=== PATIENT | female | born 1975 | race Caucasian/White ===

== ENCOUNTER → 2021-12-17 15:40 | Outpatient (BNVA) | payer BC, SELFPAY | PROVIDERS: Visit Provider Family Medicine | DX: M06.9 Rheumatoid arthritis, unspecified (principal); Z13.1 Encounter for screening for diabetes mellitus; Z13.220 Encounter for screening for lipoid disorders; Z13.6 Encounter for screening for cardiovascular disorders; N95.1 Menopausal and female climacteric states; N92.6 Irregular menstruation, unspecified; M72.2 Plantar fascial fibromatosis; N39.41 Urge incontinence; R15.9 Full incontinence of feces; R15.2 Fecal urgency; Z76.89 Persons encountering health services in other specified circumstances | CPT/HCPCS: 80053; 80061; 85025; 85651; 86038; 86140; 86200; 86431 ==

== ENCOUNTER → 2022-04-05 09:53 | Outpatient (BNVA) | payer BC, SELFPAY | PROVIDERS: PCP Family Medicine; Visit Provider Internal Medicine | DX: L40.9 Psoriasis, unspecified (principal); N95.1 Menopausal and female climacteric states | CPT/HCPCS: 72202; 73120 ==

== ENCOUNTER 2022-04-22 10:26 | Emergency (ER) | payer BC, SELFPAY ==
[2022-04-22 10:30] VITALS: BP 129/87; PULSE 79; RESP 18; TEMP 36.4; O2SAT 96
--- NOTE | 2022-04-22 11:24 | W.ED.ABDPA2 ---
HPI - Abdominal Pain General: Chief Complaint: Abdominal Pain Stated Complaint: Lower back and abd pain Time Seen by Provider: 04/22/22 11:02 History of Present Illness: Patient comes in with left lower back pain that started a couple days ago. 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 States it got significantly worse at night while she was sleeping. She describes it as sharp, constant, significantly worse with movement. States that it radiates into her left lower abdomen and left lateral thigh. Denies nausea, fever, vomiting, or diarrhea. Denies any blood in her urine. Associated Symptoms: Denies dysuria, fever(s), nausea and vomiting Review of Systems Const: Denies: fever(s) or body aches Eyes: Denies: change in vision or blurry vision ENMT: Denies: throat pain or odynophagia Card: Denies: chest pain or palpitations Resp: Denies: dyspnea or productive cough GI: Denies: abdominal pain, nausea or vomiting : Denies: flank pain or dysuria Musc: Reports: back pain; Denies: neck pain Skin/Breast: Denies: rash or pruritus Neuro: Denies: headache(s) or numbness in extremities Psych: Denies: anxiety or change in appetite Endo: Denies: polyuria or excessive sweating PFSH ED PFSH: Medical History Cervicalgia Neuropathy Rheumatoid arthritis Swelling Family History Father Diabetes Cancer Osteoarthritis Gout Grandmother Diabetes Grandmother No problems noted. Social History Smoking and tobacco status: never smoked Physical Exam Const: COMMON NORMALS: no acute distress, patient oriented x3, healthy appearing and alert HENMT: COMMON NORMALS: normocephalic and atraumatic HEAD & SCALP: normocephalic and atraumatic Eye: COMMON NORMALS: Equal, round and reactive pupils present and EOMs intact bilaterally PUPIL: Yes Equal, round and reactive pupils present Neck/C-Spine: COMMON NORMALS: full ROM and supple Resp: COMMON NORMALS: normal respiratory effort, No retractions and No use of accessory muscles Cardio: COMMON NORMALS: regular rate and regular rhythm RATE: regular rate RHYTHM: regular rhythm GI: COMMON NORMALS: Normal to inspection, nondistended, normoactive bowel sounds present, Soft to palpation and non-tender PALPATION: Yes Soft to palpation Back/Pelvis: OTHER: palpable muscle tightness and tenderness to palpation in the left lower back lateral to midline. Positive straight leg raise test. Extremity: COMMON NORMALS: normal to inspection and full ROM Neuro: COMMON NORMALS: patient oriented x3 SENSORIUM/ORIENTATION: Yes alert Psych: COMMON NORMALS: mental status grossly normal and cooperative Skin: COMMON NORMALS: no rashes or lesions noted and no wounds GENERAL SKIN EXAM: no rashes or lesions noted Course Vital Signs: Vital signs: Vital Signs Temperature 97.6 F 04/22/22 10:30 Pulse Rate 79 04/22/22 10:30 Respiratory Rate 18 04/22/22 10:30 Blood Pressure 129/87 04/22/22 10:30 Pulse Oximetry 96 04/22/22 10:30 MDM - Abdominal Pain Medical Decision Making Patient comes in with left lower back pain that started a couple days ago. 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 States it got significantly worse at night while she was sleeping. She describes it as sharp, constant, significantly worse with movement. States that it radiates into her left lower abdomen and left lateral thigh. Denies nausea, fever, vomiting, or diarrhea. Denies any blood in her urine. On physical exam she has palpable muscle tightness and tenderness to palpation in the left lower back lateral to midline. Positive straight leg raise test. States that this feels similar to when she injured her back previously. We will start her on a muscle relaxer, anti-inflammatories, steroids, encouraged heat, and discharge with precautions to return for worsening or changing symptoms. Discharge Plan Discharge Patient Disposition: Home Clinical Impression: Muscle spasm of back Condition: Stable Prescriptions: New cyclobenzaprine 5 mg tablet 5 mg PO TID PRN (Reason: muscle spasm) Qty: 10 0RF prednisone 20 mg tablet 60 mg PO DAILY 4 Days Qty: 12 0RF Discharge Orders: Discharge ED (Routine); Ordered 04/22/22 Ordered By: Hammad Cespedes Referrals: Aydee Claros MD [Primary Care Provider] - Patient Instructions: Sciatica (ED), Muscle Spasm (ED) Coding Level of Care Code ED [employer]
--- NOTE | 2022-04-22 11:25 | PC.PHAR ---
pt states she takes tums prn and ibuprofen 600mg q6h prn states took today at 06:00 am-couldnt enter medications because discharge orders were in
[2022-04-22] MEDS: cyclobenzaprine 10 mg Tablet 5 MG PO (11:37)
[2022-04-22] MEDS: predniSONE 20 mg Tablet 60 MG PO (11:38)
[2022-04-22 11:41] VITALS: BP 119/75; PULSE 81; RESP 16; O2SAT 98
== END 2022-04-22 11:42 | disposition home or self-care (01) ==
PROVIDERS: Emergency Provider Emergency Medicine; PCP Family Medicine
DX: M62.830 Muscle spasm of back (principal)
CPT/HCPCS: 81000; 99283; J7512

== ENCOUNTER → 2022-04-30 10:13 | Outpatient (BNVA) | payer BC, SELFPAY | PROVIDERS: PCP Family Medicine; Visit Provider Family Medicine | DX: N95.1 Menopausal and female climacteric states (principal); N39.41 Urge incontinence; R15.2 Fecal urgency; R15.9 Full incontinence of feces; G62.9 Polyneuropathy, unspecified; M54.2 Cervicalgia; R60.9 Edema, unspecified | CPT/HCPCS: 82550; 86160; 86162; 86200; 86235; 86255; 86376 ==

== ENCOUNTER → 2022-05-31 10:20 | Outpatient (BNVA) | payer BC, SELFPAY | PROVIDERS: PCP Family Medicine; Visit Provider Internal Medicine | DX: M06.9 Rheumatoid arthritis, unspecified (principal); M47.812 Spondylosis without myelopathy or radiculopathy, cervical region | CPT/HCPCS: 72040 ==

== ENCOUNTER → 2022-11-04 09:20 | Outpatient (BNVA) | payer BC, SELFPAY | PROVIDERS: PCP Family Medicine; Visit Provider Internal Medicine | DX: M54.2 Cervicalgia | CPT/HCPCS: 80053; 82550; 84100; 84425; 85025; 85651; 86140 ==

== ENCOUNTER → 2022-12-09 10:20 | Outpatient (BNVA) | payer BC, SELFPAY | PROVIDERS: PCP Family Medicine; Referring Provider Internal Medicine; Visit Provider Psychiatry & Neurology Neurology | DX: R42 Dizziness and giddiness (principal); M54.2 Cervicalgia; G62.9 Polyneuropathy, unspecified; R60.9 Edema, unspecified; R51.9 Headache, unspecified; G89.29 Other chronic pain | CPT/HCPCS: 36415; 82607; 82746; 83921 ==

== ENCOUNTER 2022-12-27 07:54 | Outpatient (CLI) | payer BC, SELFPAY ==
--- NOTE | 2022-12-27 08:45 | MR_ITS ---
WS: [id number] MRI BRAIN WITHOUT CONTRAST HISTORY: R42 - Dizziness and giddiness COMPARISON: None available. TECHNIQUE: Diffusion imaging, multiplanar T1, T2 and FLAIR imaging obtained. No evidence for acute infarct or hemorrhage. Couch-white matter differentiation is normal. No remote or acute infarcts are volume loss. Normal hippocampal formations. Very minimal small vessel ischemic disease in the subcortical white matter. Ventricles and extra-axial spaces are normal. No inferior displacement of cerebellar tonsils. The sella turcica and pituitary gland are unremarkabl e. Dural venous sinuses and [place] demonstrate no abnormality on this unenhanced studies. Paranasal sinuses: Clear. Mastoid air cells: Normal. Calvarium and scalp: Intact. IMPRESSION: 1. Very minimal small vessel ischemic disease. 2. No prior infarcts or hemorrhage. 3. Normal hippocampal formations.
[2022-12-27 09:37] LABS: Basophils # 0.1 10^3/uL (0.0-0.1); Basophils % 0.6 %; Eosinophils # 0.1 10^3/uL (0.0-0.8); Eosinophils % 1.7 %; Hematocrit 41.4 % (36-47); Lymphocytes # 2.3 10^3/uL (0.8-4.8); Lymphocytes % 27.2 %; Mean Corpuscular HGB Conc 32.1 g/dL (30-55); Mean Corpuscular Hemoglobin 33.5 pg (27-33); Mean Corpuscular Volume 104.3 fl (85-98); Mean Platelet Volume 9.7 fL (7.4-10.4); Monocytes # 0.6 10^3/uL (0.2-0.9); Monocytes % 7.1 %; Neutrophils # 5.24 10^3/uL (1.8-7.7); Neutrophils % 63.2 %; Nucleated Red Blood Cells % 0 %; Platelet Count 295 10^3/cmm (157-399); Red Blood Count 3.97 10^6/uL (3.85-5.65); Red Cell Distribution Width 12.7 % (12.1-15.1)
[2022-12-27 09:42] LABS: Erythrocyte Sedimentation Rate < 1 mm/hr (0-15)
[2022-12-27 09:53] LABS: Alanine Aminotransferase 17 U/L (0-33); Albumin Level 4.1 g/dL (3.5-5.2); Alkaline Phosphatase 62 U/L (35-105); Anion Gap 12.6 (5-19); Aspartate Amino Transferase 17 U/L (0-32); Blood Urea Nitrogen 12 mg/dL (6-20); Calcium 9.7 mg/dL (8.5-10.5); Carbon Dioxide 28 mmol/L (22-29); Chloride 105 mmol/L (98-107); Complement C3 130 mg/dL (90-180); Globulin 2.2 g/dL (1.3-4.6); Glomerular Filtration Rate 59.2 mL/min (90-130); Glucose 119 mg/dL (65-115); Osmolality Calculated 293 mOsm/kg (285-295); Potassium 4.6 mmol/L (3.5-5.1); Sodium 141 mmol/L (136-145); Total Bilirubin 0.2 mg/dL (0.15-1.2); Total Protein 6.3 g/dL (6.6-8.7)
[2022-12-30 12:46] LABS: Immunoglobulin A 152 mg/dL (47-310)
[2022-12-30 15:45] LABS: Gliadin Ab.IgA 2.9 U/mL; Gliadin Ab.IgG <1.0 U/mL; Tissue Transglutaminase IgA Ab <1.0 U/mL; Tissue transglutaminase Ab.IgG <1.0 U/mL
[2023-01-01 19:15] LABS: 14.3.3 ETA Protein <0.2 ng/mL (<0.2)
== END 2022-12-27 07:55 | disposition home or self-care (01) ==
PROVIDERS: PCP Family Medicine; Referring Provider Internal Medicine; Visit Provider Psychiatry & Neurology Neurology
DX: G62.9 Polyneuropathy, unspecified (principal); M54.2 Cervicalgia; R42 Dizziness and giddiness; R60.9 Edema, unspecified; M72.2 Plantar fascial fibromatosis; N95.1 Menopausal and female climacteric states; R79.89 Other specified abnormal findings of blood chemistry
CPT/HCPCS: 70551; 80053; 81000; 82784; 83516; 83520; 85025; 85651; 86140; 86160

== ENCOUNTER 2023-01-08 10:14 | Outpatient (CLI) | payer BC, SELFPAY ==
--- NOTE | 2023-01-08 12:45 | MR_ITS ---
WS: [id number] MRA ANGIOGRAPHY [place] HISTORY: Feeling of pressure in head. COMPARISON: None available. TECHNIQUE: 3-D MR angiography is performed of the [place]. All images are reviewed including source images. Small caliber distal vertebral arteries but they are patent. LEFT vertebral artery is slightly domina nt. Small caliber basilar artery but it is also patent. No aneurysm. Small caliber posterior cerebral arteries but they are patent. Patent posterior communicating arteries. Intracranial portion of the internal carotid arteries are normal course and caliber. No significant a therosclerosis, stenosis or aneurysm identified. Middle and anterior cerebral arteries are both paten t with no significant disease. Anterior communicating artery is also normal. IMPRESSION: 1. No cerebral artery aneurysms or occlusions. 2. Small caliber distal vertebral arteries and basilar artery. No occlusions.
== END 2023-01-08 10:15 | disposition home or self-care (01) ==
PROVIDERS: PCP Family Medicine; Visit Provider Psychiatry & Neurology Neurology
DX: R79.89 Other specified abnormal findings of blood chemistry (principal); R51.9 Headache, unspecified; R42 Dizziness and giddiness; G89.29 Other chronic pain; M54.2 Cervicalgia; G62.9 Polyneuropathy, unspecified
CPT/HCPCS: 70544

== ENCOUNTER 2023-01-15 08:13 | Oncology outpatient (recurring) (ONCR) | payer BC, SELFPAY ==
[2023-01-15 10:09] LABS: Basophils # 0.1 10^3/uL (0.0-0.1); Basophils % 0.7 %; Eosinophils # 0.1 10^3/uL (0.0-0.8); Eosinophils % 1.5 %; Hematocrit 41.6 % (36-47); Lymphocytes # 2.2 10^3/uL (0.8-4.8); Mean Corpuscular HGB Conc 32.9 g/dL (30-55); Mean Corpuscular Hemoglobin 33.8 pg (27-33); Mean Corpuscular Volume 102.7 fl (85-98); Mean Platelet Volume 9.6 fL (7.4-10.4); Monocytes # 0.5 10^3/uL (0.2-0.9); Monocytes % 6.7 %; Neutrophils % 61.8 %; Nucleated Red Blood Cells % 0 %; Platelet Count 314 10^3/cmm (157-399); Red Blood Count 4.05 10^6/uL (3.85-5.65); Red Cell Distribution Width 12.4 % (12.1-15.1); White Blood Count 7.44 10^3/uL (3.29-11.43)
[2023-01-15 10:57] LABS: Alanine Aminotransferase 20 U/L (0-33); Albumin Level 4.2 g/dL (3.5-5.2); Alkaline Phosphatase 59 U/L (35-105); Anion Gap 13.3 (5-19); Aspartate Amino Transferase 19 U/L (0-32); Blood Urea Nitrogen 11 mg/dL (6-20); Calcium 9.7 mg/dL (8.5-10.5); Carbon Dioxide 28 mmol/L (22-29); Chloride 104 mmol/L (98-107); Globulin 2.3 g/dL (1.3-4.6); Glomerular Filtration Rate 66.8 mL/min (90-130); Glucose 100 mg/dL (65-115); Osmolality Calculated 291 mOsm/kg (285-295); Potassium 4.3 mmol/L (3.5-5.1); Sodium 141 mmol/L (136-145); Total Bilirubin 0.3 mg/dL (0.15-1.2); Total Protein 6.5 g/dL (6.6-8.7)
[2023-01-15 13:08] LABS: Vitamin B12 > 2000 pg/mL (232-1245)
== END 2023-02-06 23:59 | disposition home or self-care (01) ==
PROVIDERS: PCP Family Medicine; Visit Provider Internal Medicine
DX: Z12.11 Encounter for screening for malignant neoplasm of colon (principal); R79.89 Other specified abnormal findings of blood chemistry; M54.2 Cervicalgia; Z79.899 Other long term (current) drug therapy
CPT/HCPCS: 36415; 80053; 82607; 85025; 86340

== ENCOUNTER → 2023-01-28 15:52 | Outpatient (BNVA) | payer BC, SELFPAY | PROVIDERS: PCP Family Medicine; Visit Provider Family Medicine | DX: Z12.4 Encounter for screening for malignant neoplasm of cervix (principal) | CPT/HCPCS: 87624 ==

== ENCOUNTER 2023-02-13 14:59 | Outpatient (CLI) | payer BC, SELFPAY ==
--- NOTE | 2023-02-13 15:00 | MM_ITS ---
WS: [id number] BILATERAL 3D TOMOSYNTHESIS DIGITAL SCREENING MAMMOGRAPHY WITH CAD CLINICAL INFORMATION: Z12.39 - Encounter for other screening for malignant neop... HISTORY: Screening mammogram. No current complaints. COMPARISON: 2016 TECHNIQUE: Bilateral CC and MLO views. FINDINGS: Scattered fibroglandular densities bilaterally. No suspicious focal mass, asymmetry, calcifications, or architectural distortion. No evidence of malignancy. IMPRESSION: MM/[place] [id number] BI-RADS: 1-Negative FOLLOW UP: 1 Year Follow-up Recommend return to annual screening mammography.
== END 2023-02-13 15:00 | disposition home or self-care (01) ==
LOC: MOBLMAM 15:10
PROVIDERS: PCP Family Medicine; Visit Provider Family Medicine
DX: Z12.31 Encounter for screening mammogram for malignant neoplasm of breast (principal)
CPT/HCPCS: 77063; 77067

== ENCOUNTER 2023-07-28 10:40 | Outpatient (CLI) | payer BC, SELFPAY ==
--- NOTE | 2023-07-28 11:00 | MR_ITS ---
WS: [id number] MRI VENOGRAM WITHOUT GADOLINIUM ENHANCEMENT WITH 2D [id number] AND 3D PHASE CONTRAST IMAGING INDICATION: Headache on and off for several years. Pressure in head. Dizziness and giddiness. TECHNIQUE: MRI venogram without gadolinium enhancement with maximum intensity projection images. 2D t [id number] and 3D phase contrast MRV imaging with maximum intensity projection images FINDINGS: Normal sagittal sinus. Normal straight sinus. Normal internal cerebral veins. Sigmoid sinus es and distal jugular veins are patent. No evidence of dural sinus thrombosis. MR/[place] [id number] IMPRESSION: 1. Normal MRV. 2. No evidence of dural sinus thrombosis.
== END 2023-07-28 10:41 | disposition home or self-care (01) ==
LOC: RAD 10:40
PROVIDERS: PCP Family Medicine; Visit Provider Psychiatry & Neurology Neurology
DX: R42 Dizziness and giddiness (principal); R51.9 Headache, unspecified
CPT/HCPCS: 70544

== ENCOUNTER → 2023-07-30 14:16 | Outpatient (BNVA) | payer BC, SELFPAY | PROVIDERS: PCP Family Medicine; Visit Provider Family Medicine | DX: M47.896 Other spondylosis, lumbar region (principal); M54.50 Low back pain, unspecified; R79.89 Other specified abnormal findings of blood chemistry | CPT/HCPCS: 72100 ==

== ENCOUNTER 2023-08-05 11:25 | Oncology outpatient (recurring) (ONCR) | payer BC, SELFPAY ==
[2023-08-05 11:50] LABS: Basophils # 0.1 10^3/uL (0.0-0.1); Basophils % 0.6 %; Eosinophils # 0.2 10^3/uL (0.0-0.8); Hematocrit 39.5 % (36-47); Lymphocytes # 2.4 10^3/uL (0.8-4.8); Lymphocytes % 24.6 %; Mean Corpuscular HGB Conc 32.9 g/dL (30-55); Mean Corpuscular Hemoglobin 33.7 pg (27-33); Mean Corpuscular Volume 102.3 fl (85-98); Mean Platelet Volume 9.6 fL (7.4-10.4); Monocytes # 0.7 10^3/uL (0.2-0.9); Monocytes % 7.2 %; Neutrophils # 6.45 10^3/uL (1.8-7.7); Neutrophils % 65.3 %; Nucleated Red Blood Cells % 0 %; Platelet Count 259 10^3/cmm (157-399); Red Blood Count 3.86 10^6/uL (3.85-5.65); Red Cell Distribution Width 13.1 % (12.1-15.1); White Blood Count 9.88 10^3/uL (3.29-11.43)
[2023-08-05 12:27] LABS: Alanine Aminotransferase 17 U/L (0-33); Alkaline Phosphatase 65 U/L (35-105); Anion Gap 10.3 (5-19); Aspartate Amino Transferase 15 U/L (0-32); Blood Urea Nitrogen 15 mg/dL (6-20); Calcium 9.1 mg/dL (8.5-10.5); Carbon Dioxide 28 mmol/L (22-29); Chloride 105 mmol/L (98-107); Globulin 2.4 g/dL (1.3-4.6); Glomerular Filtration Rate 58.9 mL/min (90-130); Glucose 104 mg/dL (65-115); Osmolality Calculated 289 mOsm/kg (285-295); Potassium 4.3 mmol/L (3.5-5.1); Sodium 139 mmol/L (136-145); Total Bilirubin 0.2 mg/dL (0.15-1.2); Total Protein 6.4 g/dL (6.6-8.7); Vitamin B12 492 pg/mL (232-1245)
[2023-08-05 13:37] LABS: Folate Level > 20.0 ng/mL (4.8-37.3)
[2023-08-08 23:40] LABS: Parietal Cell Antibody NEGATIVE (NEGATIVE)
== END 2023-08-08 23:59 | disposition home or self-care (01) ==
LOC: ONCMED 11:26
PROVIDERS: PCP Family Medicine; Visit Provider Internal Medicine
DX: R79.89 Other specified abnormal findings of blood chemistry; Z79.899 Other long term (current) drug therapy
CPT/HCPCS: 36415; 80053; 82607; 82746; 85025; 86255

== ENCOUNTER 2023-10-08 07:51 | Day surgery (SDC) | payer BC, SELFPAY ==
[2023-10-08 08:09] VITALS: BP 135/86; PULSE 86; RESP 18; TEMP 36.6; O2SAT 99; BMI 37.2
[2023-10-08] MEDS: sodium chloride 0.9% 1,000 ML 30 ML IV (08:12)
[2023-10-08 08:21] LABS: OR HCG Qualitative Urine Negative (Negative)
--- NOTE | 2023-10-08 08:50 | ANES.PREANE2 ---
Pre-Anesthetic Assessment Height/Weight: Height 1.6 m Weight 95.254 kg Temp Pulse Resp BP Pulse Ox O2 Del Method 97 F L 101 H 18 106/67 96 Room Air 10/08/23 09:38 10/08/23 09:38 10/08/23 09:38 10/08/23 09:38 10/08/23 09:38 10/08/23 09:38 Operation Date: 10/08/23 09:00 Proposed Procedures p EGD 21951, 40885, G0105, R19.5, R19.3, K21.9(Not Applicable) - Josh Lua DO s Colonoscopy(Not Applicable) - Josh Lua DO Familial anesthetic complications: None Was Beta Rody taken within 24 hours: N/A Was Clonidine taken within 24 hours: N/A Last intake: Intake Last Liquid Date 10/07/23 Last Liquid Time 22:00 Last Solid Date 10/06/23 Last Solid Time 19:00 Social No alcohol and No tobacco Exam alert, oriented x 3, clear to auscultation bilaterally and regular rate & rhythm Airway Mallampati: Class II Dentition: full GI Gastroesophageal Reflux Disease [facility] [place] Rheumatoid Arthritis Anesthetic Plan ASA status: 2 Anesthesia: MAC Risk of > 500 ml blood loss (7ml/kg in children): No Medications/Allergies Home Medications Medication Instructions Recorded Confirmed Last Taken Type ibuprofen 200 mg tablet 600 mg PO Q6H PRN Pain 04/30/22 10/06/23 10/04/23 History mecobalamin (vitamin B12) 10,000 10,000 mcg SUBCUT .MONTHLY 01/15/23 10/06/23 10/06/23 History mcg solution for injection cholecalciferol (vitamin D3) 1,250 50,000 unit PO .qweekly #14 caps 06/30/23 10/06/23 10/05/23 Rx mcg (50,000 unit) capsule mupirocin 2 % topical ointment 1 applic topical DAILY PRN skin 08/05/23 10/06/23 Unknown History lesion ondansetron 4 mg disintegrating 4 mg PO Q8H PRN nausea and 08/25/23 10/06/23 Unknown Rx tablet vomiting #30 tabs pantoprazole 40 mg tablet,delayed 40 mg PO BID 6 weeks #84 tabs 09/22/23 10/08/23 10/08/23 Rx release (Protonix) diclofenac sodium 1 % topical gel 2 g topical QID PRN Pain 10/06/23 10/06/23 Unknown History (Arthritis Pain (diclofenac)) fluticasone propionate 50 1 spray intranasal Q12H PRN 10/06/23 10/06/23 Unknown History mcg/actuation nasal Congestion spray,suspension loratadine 10 mg tablet 10 mg PO .at bedtime #30 tabs 10/06/23 10/06/23 Unknown Rx Allergies Allergy/AdvReac Type Severity Reaction Status Date / Time Sulfa (Sulfonamide Allergy unk Verified 10/06/23 09:05 Antibiotics) Current Medications Generic Name Dose Route Start Last Admin Trade Name Freq PRN Reason Stop Dose Admin Sodium Chloride 1,000 mls @ 30 mls/hr 10/08/23 08:00 10/08/23 09:42 Sodium Chloride 0.9% IV 10/09/23 07:59 Infused .Q24H JASSON Infusion PFSH Anesthesia Medical History (Updated 10/06/23 @ 09:46 by Aydee Claros MD) Miscarriage Low vitamin B12 level Dizziness Cervicalgia Neuropathy Swelling Rheumatoid arthritis Family History Father Diabetes Cancer Osteoarthritis Gout Grandmother Diabetes Grandmother No problems noted. Social History Smoking and tobacco/nicotine status: never used tobacco/nicotine Quit status (tobacco/nicotine): has quit using Year quit tobacco: 1993 Former quit date comment: smoked 1 month Second hand smoke exposure: Yes Data Anesthesia Cardiac Studies: No Data to Display
--- NOTE | 2023-10-08 09:18 | W.PM.OPSUD ---
Surgery/Procedure H&P Update DATE OF PROCEDURE: October 08, 2023 DATE H&P PERFORMED: 09/22/23 H&P UPDATE INFORMATION: I have reviewed H&P completed within last 30 days, I have examined patient prior to procedure and No changes to prior documentation PLANNED PROCEDURE: Operation Date: 10/08/23 09:00 Proposed Procedures p EGD [id number], [id number], G0105, R19.5, R19.3, K21.9(Not Applicable) - DO byron Landis Colonoscopy(Not Applicable) - Josh Lua DO
[2023-10-08 09:38] VITALS: BP 106/67; PULSE 101; RESP 18; TEMP 36.1; O2SAT 96
[2023-10-08 09:53] VITALS: BP 113/68; PULSE 81; RESP 16; TEMP 36.6; O2SAT 98
--- NOTE | 2023-10-08 10:35 | ANE.PACU2 ---
Inpatient post-anesthesia follow up: Airway intact: Yes Vital signs: Temperature 97.8 F Pulse Rate 81 Respiratory Rate 16 Blood Pressure 113/68 Pulse Oximetry 98 Oxygen Delivery Me thod Room Air Oxygen Flow Rate Fraction of Inspir ed Oxygen Hydration adequate: Yes Nausea and vomiting: No Pain level: 1 Mental status: Baseline
== END 2023-10-08 10:34 | disposition home or self-care (01) ==
PROVIDERS: PCP Family Medicine; Visit Provider Surgery
PROC: 0DJ08ZZ Inspection of Upper Intestinal Tract, Via Natural or Artificial Opening Endoscopic (ICD-10-PCS; CPT 43235; principal; 2023-10-08 09:00)
PROC: 0DJD8ZZ Inspection of Lower Intestinal Tract, Via Natural or Artificial Opening Endoscopic (ICD-10-PCS; CPT 45378; 2023-10-08 09:00)
DX: Z12.11 Encounter for screening for malignant neoplasm of colon (principal); R12 Heartburn; R10.13 Epigastric pain; K21.9 Gastro-esophageal reflux disease without esophagitis; K51.40 Inflammatory polyps of colon without complications; K20.90 Esophagitis, unspecified without bleeding
CPT/HCPCS: 43239; 45385; 81025; 88305; J2704; J7030

== ENCOUNTER → 2023-10-16 14:51 | Outpatient (BNVA) | payer BC, SELFPAY | PROVIDERS: PCP Family Medicine; Visit Provider Nurse Practitioner | DX: R52 Pain, unspecified (principal) | CPT/HCPCS: 87426 ==

== ENCOUNTER → 2023-11-24 13:54 | Outpatient (BNVA) | payer BC, SELFPAY | PROVIDERS: PCP Family Medicine; Visit Provider Psychiatry & Neurology Neurology | DX: R79.89 Other specified abnormal findings of blood chemistry (principal) | CPT/HCPCS: 36415; 82607 ==

== ENCOUNTER 2024-03-11 10:01 | Outpatient (CLI) | payer BC, SELFPAY ==
--- NOTE | 2024-03-11 10:00 | MM_ITS ---
WS: [id number] BILATERAL 3D TOMOSYNTHESIS DIGITAL SCREENING MAMMOGRAPHY WITH CAD CLINICAL INFORMATION: Z12.39 - Encounter for other screening for malignant neop... HISTORY: Screening mammogram. LEFT breast tenderness COMPARISON: 2022 TECHNIQUE: Bilateral CC and MLO views. FINDINGS: Scattered fibroglandular densities bilaterally. No suspicious focal mass, asymmetry, calcifications, or architectural distortion. No evidence of malignancy. Eggshell calcification anterior LEFT breast. MM/MM scr tomosynthesis [id number] IMPRESSION: DENSITY: There are scattered areas of fibroglandular density. BI-RADS: 2 - Benign. FOLLOW UP: 1 Year Follow-up Recommend return to annual screening mammography.
== END 2024-03-11 10:02 | disposition home or self-care (01) ==
PROVIDERS: PCP Family Medicine; Visit Provider Family Medicine
DX: Z12.31 Encounter for screening mammogram for malignant neoplasm of breast (principal); R92.323 Mammographic fibroglandular density, bilateral breasts; R92.1 Mammographic calcification found on diagnostic imaging of breast
CPT/HCPCS: 77063; 77067

== ENCOUNTER → 2024-05-31 10:17 | Outpatient (BNVA) | payer BC, SELFPAY | PROVIDERS: PCP Family Medicine; Visit Provider Family Medicine | DX: E55.9 Vitamin D deficiency, unspecified (principal); E53.8 Deficiency of other specified B group vitamins; Z13.220 Encounter for screening for lipoid disorders; Z13.6 Encounter for screening for cardiovascular disorders; Z13.1 Encounter for screening for diabetes mellitus | CPT/HCPCS: 80053; 80061; 82607; 82652 ==

== ENCOUNTER → 2024-08-20 10:49 | Outpatient (BNVA) | payer BC, SELFPAY | PROVIDERS: PCP Family Medicine; Visit Provider Family Medicine | DX: R29.90 Unspecified symptoms and signs involving the nervous system (principal); R53.83 Other fatigue; I10 Essential (primary) hypertension; Z87.898 Personal history of other specified conditions | CPT/HCPCS: 80053; 80061; 82607; 83735; 84146; 84443; 85025; 85651; 86140 ==

== ENCOUNTER → 2024-09-27 15:47 | Outpatient (BNVA) | payer BC, SELFPAY | PROVIDERS: PCP Family Medicine; Referring Provider Family Medicine; Visit Provider Psychiatry & Neurology Neurology | DX: R55 Syncope and collapse (principal); G89.29 Other chronic pain; R51.9 Headache, unspecified | CPT/HCPCS: 36415; 85049; 85384; 85610; 85730 ==

== ENCOUNTER 2024-10-07 15:24 | Outpatient (CLI) | payer BC, SELFPAY ==
--- NOTE | 2024-10-07 15:30 | USCV_ITS ---
Aziza Arshad Age: 49 Gender: F : 1975 Exam Date: 10/07/2024 15:30 Ordering Phys: Hemal Parks MD Technologist: TONJA Exam Location[place] [facility] [place]ication: Facial Numbness Risk Factors: Previous Vascular Surgery: Right Brachial BP: / Left Brachial BP: / Right Left Velocity (cm/s) Spectral Plaque Velocity (cm/s) Spectral Plaque Syst/Diast Broadening Syst/Diast Broadening 73.30/ 15.00 Prox CCA 123.40/ 43.50 92.10/ 29.70 Mid CCA 106.80/ 40.50 72.40/ 20.60 Distal CCA 91.80 / 36.20 55.90/ 13.90 Prox ICA 68.10 / 24.00 63.00/ 20.20 Mid ICA 70.80 / 23.20 79.70/ 37.90 Distal ICA 107.40/ 50.50 112.80 ECA 78.30 0.80 ICA/CCA 0.70 Antegrade Vertebral Antegrade 61.10/ 14.00 cm/s 55.00/ 19.10 cm/s Tri Subclavian Tri 107.9 117.8 0 0 CONCLUSIONS Right ICA stenosis <50%. Left ICA stenosis <50%. Intimal thickening in the common carotid arteries and internal carotid arteries bilaterally. Normal antegrade Doppler flow noted in the right vertebral artery. Normal antegrade Doppler flow noted in the left vertebral artery. Gregor Cullen MD (Electronically Signed) Final Date: 07 October 2024 16:48 S
== END 2024-10-07 15:25 | disposition home or self-care (01) ==
LOC: RAD 15:24
PROVIDERS: PCP Family Medicine; Visit Provider Psychiatry & Neurology Neurology
DX: I65.23 Occlusion and stenosis of bilateral carotid arteries (principal); G40.909 Epilepsy, unspecified, not intractable, without status epilepticus
CPT/HCPCS: 93880

== ENCOUNTER 2024-10-07 15:51 | Outpatient (CLI) | payer BC, SELFPAY | END 2024-10-07 15:52 | disposition home or self-care (01) | PROVIDERS: PCP Family Medicine; Visit Provider Psychiatry & Neurology Neurology | DX: G45.9 Transient cerebral ischemic attack, unspecified (principal); E53.8 Deficiency of other specified B group vitamins; G40.909 Epilepsy, unspecified, not intractable, without status epilepticus; R42 Dizziness and giddiness; R55 Syncope and collapse; G89.29 Other chronic pain; G43.909 Migraine, unspecified, not intractable, without status migrainosus | CPT/HCPCS: 36415; 83090; 85210; 85303; 85306; 85613; 85730; 86146; 86147 ==

== ENCOUNTER 2024-11-04 17:23 | Emergency (ER) | payer BC, SELFPAY ==
[2024-11-04 17:45] VITALS: BP 138/82; PULSE 93; RESP 18; TEMP 36.5; O2SAT 99; BMI 40.7
[2024-11-04 18:47] LABS: Glucose Urine UA Negative (Normal); Nitrate Urine Negative (Negative); Specific Gravity, Urine 1.005 (1.005-1.030)
[2024-11-04 18:52] LABS: Add Urine Microscopic? YES
[2024-11-04 19:01] LABS: Hematocrit 42.9 % (36-47); Hemoglobin 14.00 g/dL (11.27-16.99); Mean Corpuscular HGB Conc 32.6 g/dL (30-55); Mean Corpuscular Hemoglobin 33.5 pg (27-33); Mean Corpuscular Volume 102.6 fl (85-98); Nucleated Red Blood Cells % 0 %; Platelet Count 292 10^3/cmm (157-399); Red Blood Count 4.18 10^6/uL (3.85-5.65); White Blood Count 12.37 10^3/uL (3.29-11.43)
[2024-11-04 19:21] LABS: Alanine Aminotransferase 47 U/L (0-33); Albumin Level 4.5 g/dL (3.5-5.2); Alkaline Phosphatase 93 U/L (35-105); Anion Gap 16.4 (5-19); Aspartate Amino Transferase 25 U/L (0-32); Blood Urea Nitrogen 14 mg/dL (6-20); Calcium 9.9 mg/dL (8.5-10.5); Carbon Dioxide 27 mmol/L (22-29); Chloride 103 mmol/L (98-107); Creatinine Clr Calc Pharmacy 64.7863; Globulin 3.0 g/dL (1.3-4.6); Glucose 121 mg/dL (65-115); Osmolality Calculated 296 mOsm/kg (285-295); Potassium 4.4 mmol/L (3.5-5.1); Sodium 142 mmol/L (136-145); Total Protein 7.5 g/dL (6.6-8.7)
--- NOTE | 2024-11-04 20:29 | CTR_ITS ---
PROCEDURE INFORMATION: Exam: CT Abdomen And Pelvis With Contrast Exam date and time: 11/04/2024 8:45 PM Age: 49 years old Clinical indication: Abdominal pain; Localized; Left lower quadrant (llq); C/O llq pain x 2 days TECHNIQUE: Imaging protocol: Computed tomography of the abdomen and pelvis with contrast. Radiation optimization: All CT scans at this facility use at least one of these dose optimization techniques: automated exposure control; mA and/or kV adjustment per patient size (includes targeted exams where dose is matched to clinical indication); or iterative reconstruction. Contrast material: OMNI 350; Contrast volume: 100 ml; Contrast route: INTRAVENOUS (IV); COMPARISON: CR XR sacroiliac jts m 3V [id number] 04/05/2022 10:14 AM RADIATION DOSE METRICS: Total DLP (mGy-cm): 945.27 FINDINGS: Lungs: Visualized lung bases are unremarkable. Liver: No mass. Hepatic steatosis. Gallbladder and biliary ducts: There is a large calcified stone in the neck of the gallbladder measuring approximately 1.6 cm in diameter. Gallbladder wall does not appear thickened and the gallbladder is not distended. Common bile duct is normal in caliber. Pancreas: Normal. No ductal dilation. Spleen: Normal. No splenomegaly. Adrenal glands: Normal. No mass. Kidneys and ureters: Normal. No hydronephrosis. Stomach and bowel: Extensive colonic diverticulosis. There is diverticulitis involving the distal descending/sigmoid colon. No evidence of perforation. No abscess. There is an ovoid density lesion adjacent to the area of diverticulitis, likely representing superimposed epiploic appendagitis. Appendix: No evidence of appendicitis. Intraperitoneal space: Unremarkable. No free air. No significant fluid collection. Vasculature: Unremarkable. No abdominal aortic aneurysm. Lymph nodes: Unremarkable. No enlarged lymph nodes. Urinary bladder: Unremarkable as visualized. Reproductive: Unremarkable as visualized. Bones/joints: Unremarkable. No acute fracture. Soft tissues: Unremarkable. CT/CT abdomen pelvis w con* [id number] IMPRESSION: 1. Acute diverticulitis of the descending and sigmoid colon. No perforation or abscess. There is likely superimposed epiploic appendagitis in the region of the distal descending colon. 2. Hepatic steatosis.
[2024-11-04] MEDS: iohexol 350 mg/mL 500 mL Btl (per mL) IV (20:47)
--- NOTE | 2024-11-04 21:25 | W.ED.ABDPA2 ---
HPI - Abdominal Pain General: Chief Complaint: Abdominal Pain Stated Complaint: low abd pain Time Seen by Provider: 11/04/24 20:16 Source: patient Mode of arrival: ambulatory Limitations: no limitations History of Present Illness: Patient is a 49-year-old female who presents the emergency department complaining of left lower quadrant abdominal pain beginning last night. She states that it kept her up all night, it has been constant since onset and radiates into her left leg, into her back, as well as to her right lower quadrant. Denies history of kidney stones, no dysuria or hematuria. States she has had intermittent diarrhea for weeks now, but no blood in her stool. Reports nausea associated the pain, but no vomiting. No previous abdominal surgeries reported. Currently her vitals are stable, she is nontoxic-appearing in no acute distress. She reports the pain as an ache. MD elicited complaint: abdominal pain Pertinent past history: none Onset (ago): day(s) Pain Consistency: constant Location: LLQ Severity: moderate Quality: aching Radiation: RLQ, back and other (Left lower extremity) Exacerbating factors: nothing Relieving factors: nothing Associated Symptoms: Reports diarrhea and nausea; Denies bloating, change in stool character, chills, constipation, dysuria, fever(s), hematochezia and vomiting Related Data Home Medications ?Medication ?Instructions ?Recorded ?Confirmed ibuprofen 200 mg tablet 600 mg PO Q6H PRN Pain 04/30/22 09/27/24 diclofenac sodium 1 % topical gel 2 g topical QID PRN Pain 10/06/23 09/27/24 (Arthritis Pain (diclofenac)) fluticasone propionate 50 1 spray intranasal Q12H PRN 10/06/23 09/27/24 mcg/actuation nasal Congestion spray,suspension mecobalamin (vitamin B12) 2,500 2,500 mcg PO DAILY 09/27/24 09/27/24 mcg chewable tablet Previous Rx's ?Medication ?Instructions ?Recorded loratadine 10 mg tablet 10 mg PO .at bedtime #30 tabs 10/06/23 pantoprazole 40 mg tablet,delayed 40 mg PO DAILY 90 days #90 tabs 05/31/24 release cholecalciferol (vitamin D3) 1,250 50,000 unit PO .qweekly #14 caps 09/02/24 mcg (50,000 unit) capsule ciprofloxacin HCl 500 mg tablet 500 mg PO BID 7 days #14 tabs 11/04/24 (Cipro) metronidazole 500 mg tablet 500 mg PO BID 7 days #14 tabs 11/04/24 ondansetron 4 mg disintegrating 4 mg PO TID PRN nausea and 11/04/24 tablet vomiting #30 tabs Allergies Allergy/AdvReac Type Severity Reaction Status Date / Time Sulfa (Sulfonamide Allergy unk Verified 09/27/24 14:17 Antibiotics) Review of Systems General: Reports: 10 or more systems reviewed and unremarkable except in HPI and below Const: Denies: fever(s), chills, change in appetite, change in weight or diaphoresis ENMT: Denies: throat pain or hoarseness Card: Denies: chest pain, palpitations or lightheadedness Resp: Denies: dyspnea, productive cough or wheezing GI: Reports: nausea and diarrhea; Denies: abdominal pain, vomiting, constipation, bloating, change in stool character or hematochezia : Denies: flank pain, difficulty voiding, dysuria, urinary frequency or urinary urgency Musc: Reports: extremity pain (Left lower extremity); Denies: neck pain or back pain Skin/Breast: Denies: rash or new lesions Neuro: Denies: headache(s) or dizziness PFSH ED PFSH: Medical History Barretts esophagus Miscarriage Low vitamin B12 level Dizziness Cervicalgia Neuropathy Swelling Rheumatoid arthritis Family History Father Diabetes Cancer Osteoarthritis Gout Grandmother Diabetes Grandmother No problems noted. Social History Smoking and tobacco/nicotine status: never used tobacco/nicotine Quit status (tobacco/nicotine): has quit using Year quit tobacco: 1993 Former quit date comment: smoked 1 month Second hand smoke exposure: Yes Physical Exam Const: COMMON NORMALS: no acute distress, patient oriented x3, no limitations, alert and well nourished GENERAL APPEARANCE: cooperative NUTRITIONAL APPEARANCE: obese ORIENTATION/CONSCIOUSNESS: Yes awake Neck/C-Spine: COMMON NORMALS: full ROM, supple, no meningeal signs and no JVD Resp: COMMON NORMALS: normal respiratory effort, No retractions, No use of accessory muscles and clear to auscultation bilaterally AUSCULTATION: clear to auscultation bilaterally, no crackles, no rales, no rhonchi and no wheezes Cardio: COMMON NORMALS: no JVD, regular rate, regular rhythm, S1 normal heart sound present, S2 normal heart sound present, No gallops present (Cardio), No clicks present (Cardio), No murmurs present (Cardio), No rub (Cardio) and Peripheral pulses 2+ throughout RATE: regular rate RHYTHM: regular rhythm HEART SOUNDS: S1 normal heart sound present and S2 normal heart sound present PERIPHERAL PULSES: Peripheral pulses 2+ throughout GI: COMMON NORMALS: Normal to inspection, nondistended, normoactive bowel sounds present, Soft to palpation, No hepatosplenomegaly present and no masses AUSCULTATION: Yes normoactive bowel sounds PALPATION: Yes Soft to palpation, Yes Tenderness to palpation present (GI) Details: LLQ, No Rigid due to palpation and Yes No hepatosplenomegaly present RECTAL EXAM: deferred : COMMON NORMALS: Yes no CVA tenderness BLADDER/KIDNEY EXAM: Yes no CVA tenderness Back/Pelvis: COMMON NORMALS: no CVA tenderness Extremity: COMMON NORMALS: normal to inspection and full ROM Neuro: COMMON NORMALS: patient oriented x3, moves all extremities, no focal motor deficits and no sensory deficits noted SENSORIUM/ORIENTATION: Yes alert MENINGEAL SIGNS: Yes no meningeal signs Psych: COMMON NORMALS: mental status grossly normal, cooperative and speech normal SPEECH: Yes normal speech Skin: COMMON NORMALS: no rashes or lesions noted GENERAL SKIN EXAM: no rashes or lesions noted Course Vital Signs: Vital signs: Vital Signs Temperature 97.7 F 11/04/24 17:45 Pulse Rate 100 11/04/24 22:13 Respiratory Rate 18 11/04/24 22:13 Blood Pressure 110/74 11/04/24 22:13 Pulse Oximetry 98 11/04/24 22:13 Oxygen Delivery Me thod Room Air 11/04/24 17:45 MDM - Abdominal Pain Medical Decision Making Patient presenting with left lower quadrant pain beginning last night, no history of previous abdominal surgeries. Tender to palpation to the left lower quadrant on exam, urinalysis clear of any signs or symptoms of infection or potential stone. Mild leukocytosis, rest of her labs are markable. CT scan confirming acute diverticulitis without perforation or abscess, safe for treatment at home with Cipro and Flagyl. Encouraged her to increase her fiber intake and follow-up with primary care with any persistence of symptoms. First dose was given here in the ED, pain was controlled with Toradol. Lab Data 11/04/24 18:43 11/04/24 18:43 Labs/Radiology: Radiology Impressions Abdomen/Pelvis CT 11/04/24 20:29 IMPRESSION: 1. Acute diverticulitis of the descending and sigmoid colon. No perforation or abscess. There is likely superimposed epiploic appendagitis in the region of the distal descending colon. 2. Hepatic steatosis. Laboratory Results WBC 12.37 10^3/uL (3.29-11.43) H 11/04/24 18:43 RBC 4.18 10^6/uL (3.85-5.65) 11/04/24 18:43 Hgb 14.00 g/dL (11.27-16.99) 11/04/24 18:43 Hct 42.9 % (36-47) 11/04/24 18:43 MCV 102.6 fl (85-98) H 11/04/24 18:43 MCH 33.5 pg (27-33) H 11/04/24 18:43 MCHC 32.6 g/dL (30-55) 11/04/24 18:43 RDW 12.7 % (12.1-15.1) 11/04/24 18:43 Plt Count 292 10^3/cmm (157-399) 11/04/24 18:43 MPV 9.5 fL (7.4-10.4) 11/04/24 18:43 Neut % (Auto) 68.3 % 11/04/24 18:43 Lymph % (Auto) 21.4 % 11/04/24 18:43 [place] % (Auto) 8.5 % 11/04/24 18:43 Eos % (Auto) 1.1 % 11/04/24 18:43 Baso % (Auto) 0.4 % 11/04/24 18:43 Neut # (Auto) 8.44 10^3/uL (1.8-7.7) H 11/04/24 18:43 Lymph # (Auto) 2.7 10^3/uL (0.8-4.8) 11/04/24 18:43 [place] # (Auto) 1.1 10^3/uL (0.2-0.9) H 11/04/24 18:43 Eos # (Auto) 0.1 10^3/uL (0.0-0.8) 11/04/24 18:43 Baso # (Auto) 0.1 10^3/uL (0.0-0.1) 11/04/24 18:43 Nucleated RBC % (auto) 0 % 11/04/24 18:43 Nucleated RBCs # 0.0 /100WBC 11/04/24 18:43 Sodium 142 mmol/L (136-145) 11/04/24 18:43 Potassium 4.4 mmol/L (3.5-5.1) 11/04/24 18:43 Chloride 103 mmol/L (98-107) 11/04/24 18:43 Carbon Dioxide 27 mmol/L (22-29) 11/04/24 18:43 Anion Gap 16.4 (5-19) 11/04/24 18:43 BUN 14 mg/dL (6-20) 11/04/24 18:43 Creatinine 1.2 mg/dL (0.5-0.9) H 11/04/24 18:43 GFR Calculation 47.6 mL/min (90-130) L 11/04/24 18:43 Glucose 121 mg/dL (65-115) H 11/04/24 18:43 Calculated Osmolality 296 mOsm/kg (285-295) H 11/04/24 18:43 Calcium 9.9 mg/dL (8.5-10.5) 11/04/24 18:43 Total Bilirubin 0.3 mg/dL (0.15-1.2) 11/04/24 18:43 AST 25 U/L (0-32) 11/04/24 18:43 ALT 47 U/L (0-33) H 11/04/24 18:43 Alkaline Phosphatase 93 U/L (35-105) 11/04/24 18:43 Total Protein 7.5 g/dL (6.6-8.7) 11/04/24 18:43 Albumin 4.5 g/dL (3.5-5.2) 11/04/24 18:43 Globulin 3.0 g/dL (1.3-4.6) 11/04/24 18:43 Urine Color Yellow (Yellow) 11/04/24 17:34 Urine Appearance Clear (CLEAR) 11/04/24 17:34 Urine pH 5.5 (5-7) 11/04/24 17:34 Ur Specific [place] 1.005 (1.005-1.030) 11/04/24 17:34 Urine Protein Negative (Negative) 11/04/24 17:34 Urine Glucose (UA) Negative (Normal) 11/04/24 17:34 Urine Ketones Negative (Negative) 11/04/24 17:34 Urine Blood Negative (Negative) 11/04/24 17:34 Urine Nitrate Negative (Negative) 11/04/24 17:34 Urine Bilirubin Negative (Negative) 11/04/24 17:34 Urine Urobilinogen 0.2 mg/dL (Negative) 11/04/24 17:34 Ur Leukocyte Esterase Negative (Negative) 11/04/24 17:34 Urine RBC 0-2 /hpf (0-2) 11/04/24 17:34 Urine WBC 0-5 /hpf (0-5) 11/04/24 17:34 Ur Squamous Epith Cells 0-5 /hpf (0-5) 11/04/24 17:34 Amorphous Sediment Not Reportable 11/04/24 17:34 Urine Bacteria None seen /hpf (NONE) 11/04/24 17:34 Hyaline Casts 0-4 /lpf H 11/04/24 17:34 All radiology interpretation(s) finalized by discharge Discharge Plan Discharge Patient Disposition: Home Clinical Impression: Acute diverticulitis Condition: Stable Prescriptions: New metronidazole 500 mg tablet 500 mg PO BID 7 Days Qty: 14 0RF ciprofloxacin HCl [Cipro] 500 mg tablet 500 mg PO BID 7 Days Qty: 14 0RF ondansetron 4 mg tablet,disintegrating 4 mg PO TID PRN (Reason: nausea and vomiting) Qty: 30 0RF No Action ibuprofen 200 mg tablet 600 mg PO Q6H PRN (Reason: Pain) pantoprazole 40 mg tablet,delayed release (DR/EC) 40 mg PO DAILY 90 Days Qty: 90 3RF loratadine 10 mg tablet 10 mg PO .at bedtime Qty: 30 0RF mecobalamin (vitamin B12) 2,500 mcg tablet,chewable 2,500 mcg PO DAILY cholecalciferol (vitamin D3) 1,250 mcg (50,000 unit) capsule 50,000 unit PO .qweekly Qty: 14 1RF fluticasone propionate 50 mcg/actuation spray,suspension 1 spray intranasal Q12H PRN (Reason: Congestion) Rx Instructions: administer into each nostril Arthritis Pain (diclofenac) 1 % gel 2 g topical QID PRN (Reason: Pain) Rx Instructions: apply to single elbow, wrist or hand; for hand includes palm/fingers/back of hand Discharge Orders: Discharge ED (Routine); Ordered 11/04/24 Ordered By: Kelvin Kimble Referrals: Aydee Claros MD [Primary Care Provider, [facility]] Patient Instructions: Patient Portal & Nel Instructions Activity Restrictions/Additional Instructions: Diverticulitis Discharge Instructions Diagnosis: Acute uncomplicated diverticulitis. Medications: - Ciprofloxacin 500 mg orally twice daily and Metronidazole 500 mg orally three times daily for 4?7 days, as tolerated. This regimen provides broad-spectrum coverage against gram-negative and anaerobic organisms and is recommended for outpatient management in patients who require antibiotics. - Ondansetron as needed for nausea. Diet: - Begin with a clear liquid diet for the first 1?2 days (water, broth, gelatin, clear juices). Advance to a low-residue diet as symptoms improve. There is limited high-quality evidence for dietary restriction, but this approach is widely recommended to minimize bowel irritation during acute symptoms. - Gradually reintroduce solid foods as abdominal pain and gastrointestinal symptoms resolve. Activity: - Rest as needed. Resume normal activities as tolerated. Monitoring and Return Precautions: - Symptoms should improve within 48?72 hours of starting antibiotics. Complete resolution is expected within 1?2 weeks, depending on severity. - Return to the emergency department or contact your provider immediately if you experience: - Worsening or severe abdominal pain - Persistent or new-onset fever (>101.3?F / 38.5?C) - Persistent nausea or vomiting, inability to tolerate oral intake - Signs of peritonitis (rigid abdomen, rebound tenderness) - Rectal bleeding - Signs of dehydration (dizziness, decreased urination) - Any other concerning symptoms Follow-Up: - Schedule follow-up with your primary care provider within 7 days to assess symptom resolution and medication tolerance. - Outpatient management is effective for most patients with uncomplicated diverticulitis who can tolerate oral intake and have adequate social support. - Consider colonoscopy 6?8 weeks after recovery to exclude underlying malignancy, especially if not performed recently or if there are atypical features. Additional Instructions: - Avoid nonsteroidal anti-inflammatory drugs (NSAIDs) except aspirin prescribed for cardiovascular disease, as NSAIDs may increase risk of recurrence. - Maintain hydration. - Do not use opioids unless absolutely necessary for pain control. - Educate regarding recurrence risk: Approximately 15?20% of patients may experience recurrence within 2 years. Adverse Effects and Drug Precautions: - Ciprofloxacin: May cause GI upset, taste disturbance, tendinitis, neuropathy, rash. - Metronidazole: May cause nausea, diarrhea, stomach pain, rash. - Ondansetron: May cause constipation, headache, or rarely, QT prolongation. Contact Information: - For questions or concerns, contact your primary care provider or the on-call physician. 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
[2024-11-04] MEDS: ondansetron 2 mg/ML SDV 2 mL 4 MG IVP (21:26)
[2024-11-04 22:13] VITALS: BP 110/74; PULSE 100; RESP 18; O2SAT 98
== END 2024-11-04 22:14 | disposition home or self-care (01) ==
PROVIDERS: Family Medicine; Emergency Provider Physician Assistant; PCP Family Medicine
DX: K57.92 Diverticulitis of intestine, part unspecified, without perforation or abscess without bleeding (principal); Z87.891 Personal history of nicotine dependence
CPT/HCPCS: 36415; 74177; 80053; 81001; 85025; 96374; 96375; 99285; J1885; J2405; J9999

== ENCOUNTER 2024-11-15 15:19 | Oncology outpatient (recurring) (ONCR) | payer BC, SELFPAY | END 2024-12-07 23:59 | disposition home or self-care (01) | PROVIDERS: PCP Family Medicine; Visit Provider Internal Medicine Medical Oncology | DX: E53.8 Deficiency of other specified B group vitamins (principal); G45.9 Transient cerebral ischemic attack, unspecified | CPT/HCPCS: 36415; 83516; 86146; 86147 ==

== ENCOUNTER → 2024-11-22 10:36 | Outpatient (BNVA) | payer BC, SELFPAY | PROVIDERS: PCP Family Medicine; Visit Provider Internal Medicine Cardiovascular Disease | DX: R55 Syncope and collapse (principal); R00.2 Palpitations | CPT/HCPCS: 93005 ==

== ENCOUNTER 2025-01-10 06:55 | Oncology outpatient (recurring) (ONCR) | payer BC, SELFPAY ==
--- NOTE | 2025-01-10 07:00 | USCV_ITS ---
Aziza Arshad Age: 49 Gender: F : 1975 Exam Date: 01/10/2025 07:22 Ordering Phys: Yayo Whatley MD ([email or web address]) Technologist: TONJA Exam Location: [facility] – [place] Indication: Dizziness BP: 118 / 64 HR: 68 Rhythm: Sinus Technical Quality: Adequate MEASUREMENTS (Male / Female) Normal Values 2D ECHO LV Diastolic Diameter PLAX 4.7 cm 4.2 - 5.9 / 3.9 - 5.3 cm IVS Diastolic Thickness 0.6 cm 0.6 - 1.0 / 0.6 - 0.9 cm IVS Systolic Thickness 0.8 cm LVPW Diastolic Thickness 0.8 cm 0.6 - 1.0 / 0.6 - 0.9 cm LVPW Systolic Thickness 0.8 cm LVOT Diameter 1.8 cm LV Ejection Fraction 2D Teich 19.9 % LV Ejection Fraction MOD 4C 63.9 % LV Ejection Fraction MOD 2C 64.7 % LV Ejection Fraction 2C AL 64.9 % LA Diameter 2.2 cm RA Systolic Volume 4C AL 22.2 ml RA Systolic Volume 4C MOD 21.9 ml LA Sys Volume AL 19.1 cm cubed LA Sys Volume Index AL 9.0 cm cubed/m squared Aorta at Sinotubular Diameter 2.2 cm M-MODE LA Ao Ratio MM 1.3 AV Cusp Separation MM 1.5 cm DOPPLER AV Peak Velocity 125.0 cm/s LVOT Peak Velocity 110.0 cm/s AV Area Cont Eq vti 2.9 cm squared AV Area Cont Eq pk 2.4 cm squared MV Peak Velocity 107.0 cm/s MV Area PHT 3.6 cm squared Mitral E to A Ratio 1.1 TR Peak Velocity 107.0 cm/s TR Peak Gradient 4.6 mmHg TV Peak E Velocity 75.0 cm/s PV Peak Velocity 79.0 cm/s FINDINGS Left Ventricle Normal left ventricular size, systolic function and wall thickness with no regional wall motion abnormality. Left ventricular ejection fraction is 65%. Normal left ventricular diastolic function. Right Ventricle Normal right ventricular size and systolic function. Right Atrium Normal right atrial size. Left Atrium Normal left atrial size. IA Septum Normal appearance of the interatrial septum. Mitral Valve Normal mitral valve structure. No mitral valve stenosis or regurgitation. Aortic Valve Aortic valve not well visualized. No aortic valve stenosis or regurgitation. Tricuspid Valve Normal tricuspid valve structure. Trace regurgitation. Normal pulmonary pressure. Pulmonic Valve Normal pulmonic valve structure. No pulmonic valve stenosis or regurgitation. Pericardium No pericardial effusion. Aorta Normal diameter of the aortic root and ascending thoracic aorta. IVC Normal IVC diameter. CONCLUSIONS Normal left ventricular size, systolic function and wall thickness with ejection fraction of 65 %. Normal right ventricular size and systolic function. No significant valvular abnormalities. Yayo Whatley MD, FACC (Electronically Signed) Final Date: 10 January 2025 17:58 S
== END 2025-02-06 23:59 | disposition home or self-care (01) ==
LOC: RAD 06:58 → ONCMED 10:22
PROVIDERS: PCP Family Medicine; Visit Provider Internal Medicine Medical Oncology
DX: R42 Dizziness and giddiness (principal)
CPT/HCPCS: 93306